=== PATIENT | male | born 1935 ===

== ENCOUNTER 2016-09-28 07:11 | Day surgery (SDC) | payer MEDICARE, OTHER ==
[2016-09-28] MEDS ORDERED: DIPHENHYDRAMINE HCL 50 MG/ML VIAL ONE (07:30)
[2016-09-28] MEDS ORDERED: ONDANSETRON HCL INJ/PF 4 MG/2 ML SDV ONE (07:30)
[2016-09-28] MEDS ORDERED: NALOXONE HCL INJ/PF 0.4 MG/1 ML SDV ONE (07:30)
[2016-09-28] MEDS ORDERED: PROMETHAZINE HCL INJ 25 MG/1 ML VIAL ONE (07:31)
[2016-09-28] MEDS ORDERED: FLUMAZENIL INJ 0.5 MG/5 ML VIAL IV ONE (07:31)
[2016-09-28] MEDS ORDERED: FENTANYL CITRATE INJ/PF 100 MCG/2 ML AMPUL ONE (07:31)
[2016-09-28] MEDS ORDERED: GLUCAGON,HUMAN RECOMB 1 MG INJ ONE (07:32)
[2016-09-28] MEDS ORDERED: EPINEPHRINE INJ 1 MG/10 ML DISP.SYRIN ONE (07:32)
[2016-09-28] MEDS: MIDAZOLAM 2 MG/2 ML INJ ONE ×3 (08:20→08:26)
[2016-09-28 10:01] VITALS: BP 136/72
--- NOTE | 2016-09-28 10:12 | Operative Report ---
Operative Report DATE OF SURGERY: 09/28/16 Operative Report: The risks, benefits and alternatives of the procedure including risks of bleeding, perforation requiring surgery are explained to the patient detail and informed consent is obtained. Patient is taken back to the endoscopy suite. Timeout is called. Conscious sedation medications administered. A rectal examination was done which did not reveal any masses, tears or fissures. An Olympus videoscope was inserted into the patient's rectum. Keeping the lumen in site at all times the scope was then gradually advanced all the way to the cecum. The cecum as identified by the usual anatomical landmarks of the ileocecal valve as well as the appendiceal office. Photodocumentation was obtained. The scope is then sequentially pulled back via the rest segments of the colon including the ascending colon, hepatic flexure, transverse colon, splenic flexure, descending colon and finally into the rectosigmoid colon. Retroflexion maneuvers performed. PREOPERATIVE DIAGNOSIS: Change of bowel habits POSTOPERATIVE DIAGNOSIS: 1 melanosis coli. 2 internal hemorrhoids. 3 diverticulosis. 4 right-sided inflammation status post biopsy, rule out collagenous, lymphocytic colitis OPERATION: Colonoscopy with biopsy SURGEON: SANAM HINTON ANESTHESIA: Moderate Sedation - 4 mg Versed, 50 g of fentanyl. TISSUE REMOVED OR ALTERED: Colon specimens obtained COMPLICATIONS: None. ESTIMATED BLOOD LOSS: none. INTRAOPERATIVE FINDINGS: As described above. No obstruction noted. PROCEDURE: Patient tolerated the procedure well. No immediate postprocedure complications are noted. Patient is discharged in good condition. Date of discharge 09/28/2016. Discharge diet: Regular. Discharge activity: Regular. Patient does have a follow-up in 2-3 weeks Patient is instructed to go to emergency room or call the office should there be any further problems or questions. We'll await on biopsies
== END 2016-09-28 09:50 | disposition home or self-care (01) ==
LOC: END 07:11
PROVIDERS: ATTEND Internal Medicine Gastroenterology
PROC: 0DBF8ZX Excision of Right Large Intestine, Via Natural or Artificial Opening Endoscopic, Diagnostic (ICD-10-PCS; principal; 2016-09-28 08:00)
DX: K63.89 Other specified diseases of intestine (principal); K64.8 Other hemorrhoids; K57.30 Diverticulosis of large intestine without perforation or abscess without bleeding; K52.9 Noninfective gastroenteritis and colitis, unspecified; E78.01 Familial hypercholesterolemia; K58.9 Irritable bowel syndrome, unspecified; I11.0 Hypertensive heart disease with heart failure; I50.9 Heart failure, unspecified; J44.9 Chronic obstructive pulmonary disease, unspecified; R97.20 Elevated prostate specific antigen [PSA]; M19.90 Unspecified osteoarthritis, unspecified site; Z85.46 Personal history of malignant neoplasm of prostate; Z79.82 Long term (current) use of aspirin; Z88.8 Allergy status to other drugs, medicaments and biological substances; Z79.899 Other long term (current) drug therapy
CPT/HCPCS: 45380; 88342 ×2; 88305 ×2; 88313 ×2; J2250; J3010; J0171; J1200; J1610; J2310; J2405; J2550; J3490

== ENCOUNTER → 2018-01-27 | Outpatient (CLI) | payer MEDICARE, OTHER ==
--- NOTE | 2018-01-28 08:55 | XCELERA REPORT ---
[address] [address] Lower Extremity Venous Evaluation Name: FERNCY JR Age: 82 yrs Gender: Male : 1935 Patient Status: Outpatient Patient Location: Study Date: 01/27/2018 12:09 PM Procedure: Color flow and duplex imaging of the veins of the right lower extremity as well as the left Common Femoral vein. Reason For Study: RLE PAIN Ordering Physician: LEXIS CAREY PA-C Performed By: Brian Pollard Right Sided Venous Evaluation Normal vessel filling wall to wall, compression and augmentation as well as Colour flow down to the infrageniculate veins. Left Sided Venous Evaluation The left common femoral vein is fully compressible. Spontaneous and phasic flow is present in the left common femoral vein. Interpretation Summary No duplex evidence of DVT or obstruction in the right lower extremity nor in the left Common Femoral vein. : LEXIS CAREY PA-C > [facility]
== END ==
LOC: SP 11:39
PROVIDERS: ATTEND Physician Assistant
DX: M79.661 Pain in right lower leg (principal); R09.89 Other specified symptoms and signs involving the circulatory and respiratory systems; R60.9 Edema, unspecified
CPT/HCPCS: 93971